=== PATIENT | male | born 1990 | race Caucasian/White ===

== ENCOUNTER 2021-10-09 08:32 | Emergency (ER) | payer OTHER ==
[~2021-10-09] VITALS: Ht 175.3 cm; Wt 113.6 kg
--- NOTE | 2021-10-09 08:38 | PHYS DOC ---
Adult General HPI HPI Patient is a 31-year-old male presenting for known COVID-positive state. States he tested positive for COVID 8 days ago. Reports he is otherwise healthy with no medical issues and takes no medications on a daily basis and was fully vaccinated at time of diagnosis. 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 He works at [employer] who subsequently advised he present to our ER for evaluation. Besides occasional Tylenol use for aches and pains he has not been taking any medications. Review of Systems Review of Systems Fourteen body systems of review of systems have been reviewed. See HPI for pertinent positives and negative responses, other banuelos all other systems are negative, non-pertinent or non-contributory Physical Exam Physical Exam General: Appears well, non toxic, and comfortable Skin: Warm, dry. Normal for ethnicity. HEENT: Atraumatic. PERRLA. Rhinorrhea and congestion. Nasal turbinates boggy b/l. Moist mucous membranes. Uvula midline. Maintaining secretions. No phonation changes. Neck: Trachea midline. Normal ROM. No stridor. Respiratory: Normal WOB. CTAB w/o w/r/r. No tachypnea. Cardiovascular: Regular rate and rhythm. Normal peripheral perfusion. Abdomen: Soft. Non tender. No distension. Back: Normal ROM. Musculoskeletal: No swelling or deformity. Neuro: Alert and oriented x 4. MAEE. Lymph: No cervical LAD. Psych: Normal affect and mood. EKG EKG [] Radiology/Procedures Radiology/Procedures [] Heart Score C/O Chest Pain: No Risk Factors: Risk Factors: DM, Current or recent (<one month) smoker, HTN, HLP, family history of CAD, obesity. Risk Scores: Risk Factors: DM, Current or recent (<one month) smoker, HTN, HLP, family history of CAD, obesity. Course & Med Decision Making Course & Med Decision Making ABCs unremarkable HPI and physical exam nonconcerning for any emergent or surgical issues Patient with expected postnasal drip and cough status post recent COVID-19 infection in an otherwise healthy immunocompetent and vaccinated individual Supportive care practices such as antihistamine use and intranasal steroid use advised with close PCP follow-up in outpatient setting [place] Disclaimer Dragon Disclaimer This electronic medical record was generated, in whole or in part, using a voice recognition dictation system. Departure Departure: Impression: Primary Impression: COVID-19 Additional Impression: Cough Disposition: HOME / SELF CARE / HOMELESS Condition: STABLE Referrals: GENE HEWITT (PCP) Additional Instructions: As disclosed prior to ER departure, you are experiencing classic postnasal drip and dry nonproductive cough after recent COVID-19 infection. It is recommended that you utilize ayin-ysc-[id number] antihistamine medication such as Zyrtec, Claritin, Hailee or equivalent in addition to an intranasal steroid such as Flonase and/or Afrin. Honey is an alternative all-natural cough suppressant that should be utilized as needed. Otherwise, no indication for further diagnostic work-up and/or need for hospitalization based on ER presentation today. Please contact your primary care physician to review your ER visit and need for close outpatient follow-up. Is a pleasure to take care of you and I wish you the best going forward Problem Qualifiers NATALIO BOBBY DO Oct 09, 2021 08:38
[2021-10-09 08:50] VITALS: BP 150/94
== END 2021-10-09 09:05 | disposition home or self-care (01) ==
LOC: ER 08:32
DX: U07.1 COVID-19 (principal); R05.9 Cough, unspecified
CPT/HCPCS: 99282

== ENCOUNTER 2021-10-19 11:32 | Emergency (ER) | payer OTHER ==
[~2021-10-19] VITALS: Ht 175.3 cm; Wt 114.0 kg
--- NOTE | 2021-10-19 11:59 | EKG ---
[address] [address] Test Date: 2021-10-19 Test Time: 11:42:52 Pat Name: ANCA KINGSLEY Department: Room: Gender: M Staff Registered Nurse: 4 : 1990 Requested By: WILBERT ESPOSITO Order Number: [id number] Reading MD: Maykel Livingston Measurements Intervals [place] Rate: 68 P: 50 MT: 182 QRS: 60 QRSD: 94 T: 52 QT: 392 QTc: 417 Interpretive Statements SINUS RHYTHM NORMAL ECG RI6.02 No previous ECG available for comparison Electronically Signed On 10-19-2021 12:34:56 [employer]LET [employer]SEM[employer] by Maykel Livingston
[2021-10-19] MEDS ORDERED: ASPIRIN CHEWABLE 81 MG TABLET. PO ONE (12:00)
[2021-10-19] MEDS ORDERED: IV NORMAL SALINE 1,000ML 1,000 ML IV SCH (12:00)
[2021-10-19] MEDS ORDERED: NITROGLYCERIN SUBLINGUAL 0.4 MG BOTTLE OF 25. SL PRN (12:00)
--- NOTE | 2021-10-19 12:02 | PHYS DOC ---
Past History Additional Past Medical Histor: DX with COVID 10/01/2021 (WILBERT ESPOSITO APRN) Past Surgical History: Appendectomy Additional Past Surgical Histo: appendectomy/tumor removal with partial colon resection (WILBERT ESPOSITO APRN) Alcohol Use: None (WILBERT ESPOSITO APRN) General Adult EDM: Chief Complaint: CHEST PAIN HPI: HPI: Patient is a 31-year-old male who presents to the emergency department for intermittent chest pain x3 days. Patient reports midsternal chest pain has been worse over the last 2 days. He rates it 2 out of 10 currently and at its worst is 4 out of 10. He describes it as a pressure pain. It is worse with activity. Patient reports with the chest pain he does have a frontal headache and lightheadedness. He reports that when the pain was at its worse yesterday he d id have some left arm tingling. Patient reports shortness of breath since being diagnosed with COVID-19 on October 01 of this year. Patient denies vomiting, cough, fever, abdominal pain. Patient has no medical history. He does not smoke cigarettes. (WILBERT ESPOSITO APRN) Review of Systems: Review of Systems: Constitutional: negative unless reported in HPI Eyes: negative unless reported in HPI HENT: negative unless reported in HPI Respiratory: negative unless reported in HPI Cardiovascular: negative unless reported in HPI GI: negative unless reported in HPI : negative unless reported in HPI Musculoskeletal: negative unless reported in HPI Integument: negative unless reported in HPI Neurologic: negative unless reported in HPI Endocrine: negative unless reported in HPI Lymphatic: negative unless reported in HPI Psychiatric: negative unless reported in HPI (WILBERT ESPOSITO APRN) Current Medications: Current Meds: Current Medications Medications (Trade) Dose Ordered Sig/Callum Start Time Stop Time Status Last Admin Dose Admin Aspirin (Aspirin Chewable) 324 mg 1X ONCE 10/19/21 12:00 10/19/21 12:01 UNV Nitroglycerin (Nitrostat) 0.4 mg PRN Q5MIN PRN 10/19/21 12:00 10/20/21 11:59 UNV Sodium Chloride 1,000 ml @ 1,000 mls/hr Q1H 10/19/21 12:00 10/19/21 12:59 UNV (WILBERT ESPOSITO APRN) Allergies: Allergies: Allergies Coded Allergies Type Severity Reaction Last Updated Verified No Known Drug Allergies 10/09/21 No (WILBERT ESPOSITO APRN) Physical Exam: PE: Constitutional: Well developed, well nourished, no acute distress, non-toxic appearance. [] HENT: Normocephalic, atraumatic, bilateral external ears normal, oropharynx moist, no oral exudates, nose normal. [] Eyes: PERRL, EOMI, conjunctiva normal, no discharge. [] Neck: Normal range of motion, no tenderness, supple, no stridor. [] Cardiovascular:Heart rate regular rhythm, no murmur, chest pain is not reproducible with palpation [] Lungs & Thorax: Bilateral breath sounds clear to auscultation, nonlabored Abdomen: Bowel sounds normal, soft, no tenderness, no masses, no pulsatile masses. [] Skin: Warm, dry, no erythema, no rash. [] Back: Normal range of motion Extremities: No tenderness, no cyanosis, no clubbing, ROM intact, no edema. [] Neurologic: Alert and oriented X 3, normal motor function, normal sensory function, no focal deficits noted. [] Psychologic: Affect normal, judgement normal, mood normal. [] (WILBERT SEPOSITO APRN) Current Patient Data: Labs: Laboratory Tests Test 10/19/21 12:10 White Blood Count 7.9 x10^3/uL Red Blood Count 5.05 x10^6/uL Hemoglobin 15.2 g/dL Hematocrit 44.7 % Mean Corpuscular Volume 88 fL Mean Corpuscular Hemoglobin 30 pg Mean Corpuscular Hemoglobin Concent 34 g/dL Red Cell Distribution Width 13.5 % Platelet Count 251 x10^3/uL Neutrophils (%) (Auto) 62 % Lymphocytes (%) (Auto) 28 % Monocytes (%) (Auto) 7 % Eosinophils (%) (Auto) 2 % Basophils (%) (Auto) 1 % Neutrophils # (Auto) 4.9 x10^3uL Lymphocytes # (Auto) 2.2 x10^3/uL Monocytes # (Auto) 0.5 x10^3/uL Eosinophils # (Auto) 0.1 x10^3/uL Basophils # (Auto) 0.1 x10^3/uL Sodium Level 138 mmol/L Potassium Level 3.9 mmol/L Chloride Level 103 mmol/L Carbon Dioxide Level 24 mmol/L Anion Gap 11 Blood Urea Nitrogen 18 mg/dL Creatinine 0.9 mg/dL Estimated GFR (Cockcroft-Gault) 97.8 BUN/Creatinine Ratio 20 Glucose Level 81 mg/dL Calcium Level 9.2 mg/dL Total Bilirubin 0.8 mg/dL Aspartate Amino Transf (AST/SGOT) 25 U/L Alanine Aminotransferase (ALT/SGPT) 67 U/L Alkaline Phosphatase 133 U/L Troponin I High Sensitivity < 4 ng/L Total Protein 7.3 g/dL Albumin 4.1 g/dL Albumin/Globulin Ratio 1.3 Current Medications Medications (Trade) Dose Ordered Sig/Callum Route PRN Reason Start Time Stop Time Status Last Admin Dose Admin Aspirin (Aspirin Chewable) 324 mg 1X ONCE PO 10/19/21 12:00 10/19/21 12:27 DC 10/19/21 12:19 Nitroglycerin (Nitrostat) 0.4 mg PRN Q5MIN PRN SL CP RATING > 10/0110/19/21 12:00 10/20/21 11:59 Sodium Chloride 1,000 ml @ 1,000 mls/hr Q1H IV 10/19/21 12:00 10/19/21 12:59 DC 10/19/21 12:16 Vital Signs: Vital Signs Date Time Temp Pulse Resp B/P (MAP) Pulse Ox O2 Delivery O2 Flow Rate FiO2 10/19/21 11:40 97.5 67 19 117/56 (76) 100 Room Air (WILBERT ESPOSITO BOARDING SPECIALIST) EKG: EKG: EKG performed by ER staff at 1142 shows sinus rhythm with a rate of 68, QTc of 417, no STEMI read by Dr. Martínez at 1153. [] (WILBERT ESPOSITO BOARDING SPECIALIST) Radiology/Procedures: Radiology/Procedures: []ROCEDURE: PORTABLE CHEST 1V EXAM: Chest, single view. HISTORY: Chest pain. COMPARISON: None. FINDINGS: A frontal view of the chest is obtained. There is no infiltrate, pleural infusion or pneumothorax. The heart is normal in size. IMPRESSION: No acute pulmonary finding. Electronically signed by: Saira Kern MD (10/19/2021 12:17 PM) [id number] DICTATED AND SIGNED BY: SAIRA KERN MD DATE: 01/28/22 1217 CC: REFUGIO MAYORGA MD; WILBERT ESPOSITO APRN ~MTH0 0 (WILBERT ESPOSITO APRN) Heart Score: C/O Chest Pain: Yes HEART Score for Chest Pain: HEART Score for Chest Pain Response (Comments) Value History Slighlty/Non-Suspicious 0 ECG Normal 0 Age < 45 0 Risk Factors 1 or 2 Risk Factors (family hx of cad) 1 Troponin < Normal Limit 0 Total 1 Risk Factors: Risk Factors: DM, Current or recent (<one month) smoker, HTN, HLP, family history of CAD, obesity. Risk Scores: Score 0 - 3: 2.5% MACE over next 6 weeks - Discharge Home Score 4 - 6: 20.3% MACE over next 6 weeks - Admit for Clinical Observation Score 7 - 10: 72.7% MACE over next 6 weeks - Early Invasive Strategies (WILBERT ESPOSITO APRN) Course & Med Decision Making: Course & Med Decision Making Pertinent Labs and Imaging studies reviewed. (See chart for details) Patient presents to the emergency department for intermittent chest pain with shortness of breath, headache and lightheadedness that started 3 days ago. Patient was diagnosed with COVID-19 18 days ago. Patient has no medical h istory, he does not smoke cigarettes. Patient's PERC score is 0. Heart score is 1. Blood work unremarkable, negative troponin and chest xray. VSS. Patient treated with asa. Pain resolved in the ER and he was not given Nitro tablet. Patient given cardiology referral. I discussed with patient all findings and diagnostic testing as well as the need to follow-up with PCP for further evaluation and treatment or return to the ER if any new or worsening symptoms. Strict return precautions were also discussed at length. Patient voiced understanding and agreement with the plan. Patient is hemodynamically stable at the time of disposition. (WILBERT ESPOSITO APRN) Dragon Disclaimer: Dragon Disclaimer: This electronic medical record was generated, in whole or in part, using a voice recognition dictation system. (WILBERT ESPOSITO APRN) Attending Co-Sign The patient was seen and interviewed as well as examined at the bedside. The chart was reviewed. The case was discussed. Agree with the plan of care. (RAHEEM MARTÍNEZ DO) Departure Departure: Impression: Primary Impression: Atypical chest pain Disposition: HOME / SELF CARE / HOMELESS Condition: GOOD Referrals: REFUGIO MAYORGA MD (PCP) ROXY MASSEY MD Patient Instructions: Chest Pain (Nonspecific) Additional Instructions: You were seen in the emergency department today for chest pain. At this time, does not appear that you are experiencing acute coronary syndrome. It is unsure if your symptoms of chest pain and headache are post COVID syndrome symptoms. Please take Tylenol and ibuprofen for any pain that you experience. Increase your fluids and rest. Try not to overexert your self. Follow-up with the drawer in [employer] lo[employer] that was attached to this paperwork. I would call them tomorrow and set up a follow-up appointment as soon as possible. Otherwise follow-up with your primary care provider. As we discussed, if you return home and experience persistence or worsening of your symptoms, shortness of breath, intractable nausea or vomiting, speech problems, difficulty ambulating, high fevers refractory to treatment or any new or worsening concerns please return to the emergency department immediately. WILBERT ESPOSITO APRN Oct 19, 2021 12:02 RAHEEM MARTÍNEZ DO Oct 20, 2021 07:45
--- NOTE | 2021-10-19 12:19 | RAD ---
EXAM: Chest, single view. HISTORY: Chest pain. COMPARISON: None. FINDINGS: A frontal view of the chest is obtained. There is no infiltrate, pleural infusion or pneumo thorax. The heart is normal in size. IMPRESSION: No acute pulmonary finding. Electronically signed by: Saira May MD (10/19/2021 12:17 PM) [id number]
[2021-10-19 12:32] VITALS: BP 115/75
[2021-10-19 12:36] LABS: CALCIUM 9.2 mg/dL (8.5-10.1); CREATININE 0.9 mg/dL (0.7-1.3); GFR 97.8; POTASSIUM 3.9 mmol/L (3.5-5.1)
[2021-10-19 12:38] LABS: BASO # 0.1 x10^3/uL (0.0-0.2); BASO % 1 % (0-3); EOS # 0.1 x10^3/uL (0.0-0.7); EOS % 2 % (0-3); HEMATOCRIT 44.7 % (39.0-53.0); HEMOGLOBIN 15.2 g/dL (13.0-17.5); LYMPH # 2.2 x10^3/uL (1.0-4.8); LYMPH % 28 % (24-48); MEAN CORPUSCULAR HEMOGLOBIN 30 pg (25-35); MEAN CORPUSCULAR HGB CONC 34 g/dL (31-37); MEAN CORPUSCULAR VOLUME 88 fL (79-100); MONO # 0.5 x10^3/uL (0.0-1.1); MONO % 7 % (0-9); NEUT # 4.9 x10^3uL (1.8-7.7); NEUT % 62 % (31-73); PLATELET COUNT 251 x10^3/uL (140-400); RED BLOOD COUNT 5.05 x10^6/uL (4.30-5.70); RED CELL DISTRIBUTION WIDTH 13.5 % (11.5-14.5); WHITE BLOOD COUNT 7.9 x10^3/uL (4.0-11.0)
[2021-10-19 12:42] LABS: ALBUMIN 4.1 g/dL (3.4-5.0); ALBUMIN/GLOBULIN RATIO 1.3 (1.0-1.7); TOTAL BILIRUBIN 0.8 mg/dL (0.2-1.0); TOTAL PROTEIN 7.3 g/dL (6.4-8.2)
== END 2021-10-19 13:50 | disposition home or self-care (01) ==
LOC: ER 11:32
DX: R07.89 Other chest pain (principal); R51.9 Headache, unspecified; R42 Dizziness and giddiness
CPT/HCPCS: 36415; 71045; 80053; 84484; 85025; 93005; 96360; 99285; J7030

== ENCOUNTER 2021-12-13 04:10 | Emergency (ER) | payer OTHER ==
[~2021-12-13] VITALS: Ht 175.3 cm; Wt 111.2 kg
--- NOTE | 2021-12-13 04:39 | PHYS DOC ---
Past History Additional Past Medical Histor: DX with COVID 10/01/2021 Past Surgical History: Appendectomy Additional Past Surgical Histo: appendectomy/tumor removal with partial colon resection Alcohol Use: None General Adult EDM: Chief Complaint: NAUSEA/VOMITING/DIARRHEA HPI: HPI: ".. I ve had like 20 stools tonight.. I feel really dehydrated.. I ve not been great shape since my COVID in .. 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 Patient denies any bad food intake but did have pizza earlier. Patient has significant episode of Covid infection in October 01, in spite of having vaccination. 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 No recent TDYs or overseas assignments. Review of Systems: Review of Systems: Constitutional: Denies fever or chills Eyes: Denies change in visual acuity HENT: Denies nasal congestion or sore throat Respiratory: Denies cough or shortness of breath Cardiovascular: Denies chest pain or edema GI: Planes of generalized abdominal pain, nausea, and diarrhea : Denies dysuria Musculoskeletal: Denies back pain or joint pain Integument: Denies rash Neurologic: Denies headache, focal weakness or sensory changes Endocrine: Denies polyuria or polydipsia Lymphatic: Denies swollen glands Psychiatric: Denies depression or anxiety Family History: Family History: Noncontributory to presentation Current Medications: Current Meds: See nursing for home meds Allergies: Allergies: Allergies Coded Allergies Type Severity Reaction Last Updated Verified No Known Drug Allergies 12/13/21 No Physical Exam: PE: Constitutional: Moderate acute distress, non-toxic appearance. [] HENT: Normocephalic, atraumatic, bilateral external ears normal, oropharynx dry, no oral exudates, nose normal. [] Eyes: PERRLA, EOMI, conjunctiva normal, no discharge. [] Neck: Normal range of motion, no tenderness, supple, no stridor. [] Cardiovascular:Heart rate regular rhythm, no murmur [] Lungs & Thorax: Bilateral breath sounds at apex on auscultation [] Abdomen: Bowel sounds hyperactive, soft, generalized tenderness, no masses, no pulsatile masses. [] No focal areas of rebound. Large midline scar Skin: Warm, dry, no erythema, no rash. [] Back: No tenderness, no CVA tenderness. [] Extremities: No tenderness, no cyanosis, no clubbing, ROM intact, no edema. No cording appreciated. No psoas sign. Neurologic: Alert and oriented X 3, normal motor function, normal sensory function, no focal deficits noted. [] Psychologic: Affect anxious, judgement normal, mood normal. [] EKG: EKG: [] Radiology/Procedures: Radiology/Procedures: [][address] [address] IMAGING REPORT Signed PATIENT: ANCA KINGSLEY ACCOUNT: [id number] : 1990 LOCATION: ER AGE: 31 SEX: M EXAM STATUS: REG ER ORD. PHYSICIAN: RAJANI MILLER MD REASON: Abdomen pain, nausea and vomiting, dizziness PROCEDURE: ACUTE ABDOMEN SERIES XR ABDOMEN COMP ACUTE History: Abdominal pain, nausea and vomiting. Comparison: Chest x-ray 10/19/2021 Technique: Frontal chest with upright and supine radiographs of the abdomen and pelvis. Findings: Chest: Clear lungs. Normal cardiomediastinal silhouette. Bowel gas pattern: Nonobstructive bowel gas pattern. No dilated bowel loops are abnormal air-fluid levels. Chain sutures in the right upper quadrant. No excessive colonic stool burden. Free air: None. Abnormal calcifications: None. Bones: No acute findings. Other: None. Impression: 1. No acute cardiac pulmonary findings. No acute abdominal findings. Electronically signed by: Neptali Scanlon MD (12/13/2021 5:18 AM) [facility] DICTATED AND SIGNED BY: NEPTALI SCANLON MD DATE: 12/13/21 0517 CC: REFUGIO MAYORGA MD; RAJANI MILLER MD ~ Heart Score: C/O Chest Pain: N/A Risk Factors: Risk Factors: DM, Current or recent (<one month) smoker, HTN, HLP, family history of CAD, obesity. Risk Scores: Score 0 - 3: 2.5% MACE over next 6 weeks - Discharge Home Score 4 - 6: 20.3% MACE over next 6 weeks - Admit for Clinical Observation Score 7 - 10: 72.7% MACE over next 6 weeks - Early Invasive Strategies Course & Med Decision Making: Course & Med Decision Making Pertinent Labs and Imaging studies reviewed. (See chart for details) Patient's symptoms gradually improved with bolus of LR 1000 cc. Toradol IV 30 and Zofran 8 mg IV. Patient received Pepto-Bismol. No stool production ED. patient stay on a clear fluid diet for the next couple days. No solids. No milk products. Must allow bowel rest. Return if any concerns. Follow-up primary care. Impression: 1. Acute gastroenteritis 2. Abdomen pain 3. Mild dehydration 4. History of COVID infection September 2021 5. History of partial colon resection and tumor removal 2007 6. Viral syndrome 7. Mild leukocytosis 14.4 [] Dragon Disclaimer: Dragon Disclaimer: This electronic medical record was generated, in whole or in part, using a voice recognition dictation system. Departure Departure: Referrals: REFUGIO MAYORGA MD (PCP) Scripts Ibuprofen (IBUPROFEN) 800 Mg Tablet 600 MG PO QIDPRN PRN for fever, #120 TAB Prov: RAJANI MILLER MD 12/13/21 Acetaminophen (ACETAMINOPHEN) 500 Mg Tablet 1000 MG PO QIDPRN PRN for PAIN, #120 TAB Prov: RAJANI MILLER MD 12/13/21 Bismuth Subsalicylate (PEPTO-BISMOL) 525 Mg/15 Ml Oral.susp 525 MG PO QIDPRN PRN for DIARRHEA, #120 LIQUID Prov: RAJANI MILLER MD 12/13/21 Ondansetron Hcl (ONDANSETRON HCL) 4 Mg Tablet 8 MG PO QIDPRN PRN for NAUSEA/VOMITING, #30 TAB Prov: RAJANI MILLER MD 12/13/21 Dragon Disclaimer This chart was dictated in whole or in part using Voice Recognition software in a busy, high-work load, and often noisy Emergency Department environment. It may contain unintended and wholly unrecognized errors or omissions. RAJANI MILLER MD Dec 13, 2021 04:39
[2021-12-13] MEDS ORDERED: BISMUTH SUBSALICYLATE 262 MG TAB.CHEW PO PRN (04:45)
[2021-12-13] MEDS ORDERED: ONDANSETRON PF 4 MG/2 ML VIAL. IVP ONE (05:00)
[2021-12-13] MEDS ORDERED: FAMOTIDINE 20 MG/2 ML VIAL IVP ONE (05:00)
[2021-12-13] MEDS ORDERED: IV RINGERS SOLUTION,LACTATED 1,000 ML IV SCH (05:00)
[2021-12-13] MEDS ORDERED: KETOROLAC 30 MG/ML VIAL. IVP ONE (05:00)
--- NOTE | 2021-12-13 05:20 | RAD ---
XR ABDOMEN COMP ACUTE History: Abdominal pain, nausea and vomiting. Comparison: Chest x-ray 10/19/2021 Technique: Frontal chest with upright and supine radiographs of the abdomen and pelvis. Findings: Chest: Clear lungs. Normal cardiomediastinal silhouette. Bowel gas pattern: Nonobstructive bowel gas pattern. No dilated bowel loops are abnormal air-fluid le vels. Chain sutures in the right upper quadrant. No excessive colonic stool burden. Free air: None. Abnormal calcifications: None. Bones: No acute findings. Other: None. Impression: 1. No acute cardiac pulmonary findings. No acute abdominal findings. Electronically signed by: Neptali Esteban MD (12/13/2021 5:18 AM) [facility]
[2021-12-13 05:41] LABS: BASO % 0 % (0-3); EOS % 0 % (0-3); HEMATOCRIT 46.4 % (39.0-53.0); HEMOGLOBIN 15.6 g/dL (13.0-17.5); LYMPH # 0.3 x10^3/uL (1.0-4.8); LYMPH % 2 % (24-48); MEAN CORPUSCULAR HEMOGLOBIN 30 pg (25-35); MEAN CORPUSCULAR HGB CONC 34 g/dL (31-37); MEAN CORPUSCULAR VOLUME 88 fL (79-100); MONO # 0.6 x10^3/uL (0.0-1.1); MONO % 4 % (0-9); NEUT # 13.5 x10^3uL (1.8-7.7); NEUT % 94 % (31-73); PLATELET COUNT 232 x10^3/uL (140-400); RED BLOOD COUNT 5.29 x10^6/uL (4.30-5.70); RED CELL DISTRIBUTION WIDTH 13.5 % (11.5-14.5); WHITE BLOOD COUNT 14.4 x10^3/uL (4.0-11.0)
[2021-12-13 05:49] LABS: CALCIUM 8.8 mg/dL (8.5-10.1); CREATININE 0.9 mg/dL (0.7-1.3); GFR 97.8; POTASSIUM 3.8 mmol/L (3.5-5.1)
[2021-12-13 05:55] LABS: ALBUMIN 4.3 g/dL (3.4-5.0); DIRECT BILIRUBIN 0.2 mg/dL (0.0-0.2); TOTAL BILIRUBIN 1.2 mg/dL (0.2-1.0); TOTAL PROTEIN 7.9 g/dL (6.4-8.2)
[2021-12-13 06:02] LABS: INFLUENZA A PATIENT NEGATIVE (NEGATIVE); INFLUENZA B PATIENT NEGATIVE (NEGATIVE)
[2021-12-13] MEDS ORDERED: BISM525O8 PO (06:13)
[2021-12-13] MEDS ORDERED: ONDA-84 PO (06:13)
[2021-12-13] MEDS ORDERED: ACET500T68 PO (06:13)
[2021-12-13] MEDS ORDERED: IBUP800T19 PO (06:13)
[2021-12-13 06:16] VITALS: BP 122/76
== END 2021-12-13 06:20 | disposition home or self-care (01) ==
LOC: ER 04:10
DX: K52.9 Noninfective gastroenteritis and colitis, unspecified (principal); E86.0 Dehydration; B34.9 Viral infection, unspecified; D72.829 Elevated white blood cell count, unspecified; Z20.822 Contact with and (suspected) exposure to COVID-19; Z86.16 Personal history of COVID-19; Z90.89 Acquired absence of other organs
CPT/HCPCS: 74022; 80048; 80076; 85025; 87428; 96361; 96374; 96375; 99284; J1885; J2405; J3490; J7120